=== PATIENT | female | born 1990 | race Caucasian/White ===

== ENCOUNTER 2018-01-07 02:42 | Observation (INO) | payer OTHER ==
[~2018-01-07] VITALS: Ht 160 cm; Wt 81.2 kg
[2018-01-07 21:04] VITALS: BP 127/70
[2018-01-08] MEDS ORDERED: PREN1TAB80 PO (00:07)
== END 2018-01-07 23:50 | disposition home or self-care (01) ==
LOC: 4S 02:42
PROVIDERS: ADMIT Obstetrics & Gynecology; ATTEND Obstetrics & Gynecology
DX: O62.9 Abnormality of forces of labor, unspecified (principal); Z3A.36 36 weeks gestation of pregnancy